=== PATIENT | female | born 1980 | race Caucasian/White ===

== ENCOUNTER 2021-02-16 13:22 | Emergency (ER) | payer OTHER, MEDICAID ==
[~2021-02-16] VITALS: Ht 167.6 cm; Wt 72.6 kg
--- NOTE | ~2021-02-16 | EMS ---
[facility] [address] [place] [address] EMS Patient Care Report Name: DON REICH Room: [facility]#: [id number] Admission: 02/16/21 Attend Phys: Discharge: Date of : 84 Report #: [id number] THIS REPORT FOR: //name// Report Transmitted: 02/16/2021 13:30 EMS Care Summary [facility] [employer] [facility] Incident [id number] @ 02/16/2021 12:07 Incident Location [address] [place] [address] Patient DON CUENCA Female, 40 Years 1980 Patient Address [address] [place] [address] Patient History Hypertension (HTN),Anxiety Disorder (Panic Attacks),Anxiety, Patient Allergies Diphenhydramine, Patient Medications Lisinopril, Chief Complaint Chest Pain Disposition Transported No Lights/[place] Dispatch Reason Chest Pain (Non-Traumatic) Transported To [facility] Narrative Med 1 was dispatched for [facility] for a [age] year-old female c/o Intermittent Chest Pain that radiates a dull pain down both her legs. When the pain begins she rates it at an 8. Upon arrival, the patient was sitting in the passenger side of a truck accompanied by her [place] [address] [place] [address] EMS Patient Care Report Name: DON REICH Room: [facility]#: [id number] Admission: 02/16/21 Attend Phys: Discharge: Date of : 84 Report #: [id number] boyfriend. She is AOx3, she has strong, regular, radial bilateral pulses. These symptoms have been going on for the last several weeks and she was seen by her PCP and he increased her Anxiety medication dose. She is unable to remember the name of the medication. Patient was assisted to the stretcher and secured via the seatbelts and moved to the ambulance without incident. In the ambulance, patient was placed on the EKG and a 12 lead was obtained it shown NSR. Patient's vitals were obtained. Patient was place don Oxygen via NC at 2 lpm. IV access was established in the patients left forearm with a 20 GA IV catheter and a saline lock. Med [address] [facility]. Patient was given 324 mg of ASA. Patient's pain decreased to a 0 throughout transport. Patient reports that she does not believe she has been under any new stress that could cause this chest pain. Patient was monitored though out transport. Hospital report was given via radio with no questions or orders requested or received. Med 1 arrived at the hospital. Patient was moved into the ER via stretcher to room 5 without incident. Patient care was transferred to ER staff and Med 1 returned back into service. [id number] KShook Initial Vitals @12:34P: 93,SpO2: 98, @12:47P: 92,SpO2: 95, @13:12P: 78,SpO2: 98, @12:57P: 84,SpO2: 98, @13:07P: 75,SpO2: 98, @12:37P: 94,SpO2: 98, @12:36 @13:02P: 81,SpO2: 98, @12:42P: 90, @12:52P: 85,SpO2: 99, @13:14P: 81,BP: 128/78,Pain: 0/10,GCS: 15,SpO2: 97, @12:48P: 94,BP: 133/76,Pain: 0/10,GCS: 15,SpO2: 95, @12:33R: 18,BP: 147/80,Pain: 8/10,GCS: 15,Glucose: 114,SpO2: 99,Revised Trauma: 12, Impression Chest Pain, Other (Non-Cardiac) Procedures @12:43Aspirin - 324 Milligrams (mg) - OralResponse: Unchanged@12:42Saline Lock 10cc (20 ga) Site: Forearm-LeftResponse: UnchangedSucceeded@12:40[place] [address] EMS Patient Care Report Name: DON REICH Room: [facility].#: [id number] Admission: 02/16/21 Attend Phys: Discharge: Date of : 84 Report #: [id number] FlowRate: 2 Device: Nasal Cannula (NC) Response: UnchangedSucceeded@12:3612-Lead ECGResponse: UnchangedSucceeded Timeline 12:06,Call Received 12:07,Dispatched 12:07,En Route 12:30,On Scene 12:31,At Patient 12:33,BP: 147/80 M,PULSE: ,RR: 18 R,SPO2: 99 Ox,ETCO2: ,B,PAIN: 8,GCS: 15, 12:34,BP: / M,PULSE: 93,RR: R,SPO2: 98 Ox,ETCO2: ,BG: ,PAIN: ,GCS: , 12:36,12-Lead ECG,Response: UnchangedSucceeded, 12:36,BP: / M,PULSE: ,RR: R,SPO2: Ox,ETCO2: ,BG: ,PAIN: ,GCS: , 12:37,BP: / M,PULSE: 94,RR: R,SPO2: 98 Ox,ETCO2: ,BG: ,PAIN: ,GCS: , 12:40,Oxygen FlowRate: 2 Device: Nasal Cannula (NC) Response: UnchangedSucceeded, 12:42,Saline Lock 10cc 20 ga Site: Forearm-Left,Response: UnchangedSucceeded, 12:42,BP: / M,PULSE: 90,RR: R,SPO2: Ox,ETCO2: ,BG: ,PAIN: ,GCS: , 12:43,Depart Scene 12:43,Aspirin - 324 Milligrams (mg) - Oral,Response: Unchanged 12:47,BP: / M,PULSE: 92,RR: R,SPO2: 95 Ox,ETCO2: ,BG: ,PAIN: ,GCS: , 12:48,BP: 133/76 M,PULSE: 94,RR: R,SPO2: 95 Ox,ETCO2: ,BG: ,PAIN: 0,GCS: 15, 12:52,BP: / M,PULSE: 85,RR: R,SPO2: 99 Ox,ETCO2: ,BG: ,PAIN: ,GCS: , 12:57,BP: / M,PULSE: 84,RR: R,SPO2: 98 Ox,ETCO2: ,BG: ,PAIN: ,GCS: , 13:02,BP: / M,PULSE: 81,RR: R,SPO2: 98 Ox,ETCO2: ,BG: ,PAIN: ,GCS: , 13:07,BP: / M,PULSE: 75,RR: R,SPO2: 98 Ox,ETCO2: ,BG: ,PAIN: ,GCS: , 13:12,BP: / M,PULSE: 78,RR: R,SPO2: 98 Ox,ETCO2: ,BG: ,PAIN: ,GCS: , 13:14,BP: 128/78 M,PULSE: 81,RR: R,SPO2: 97 Ox,ETCO2: ,BG: ,PAIN: 0,GCS: 15, 13:18,At Destination 13:52,Call Closed 13:52,In District Disclaimer v1.1 Copyright 2020 [employer] This EMS Care Summary contains data elements from the applicable legal record (which may be displayed differently). It is designed to provide pertinent information for the following purposes: continuity of care, clinical quality, and state data reporting. The complete legal record is available to ED staff and administrators of the receiving hospital in [facility]'s Patient Tracker. All data is provided "as is."
[2021-02-16 13:50] LABS: HEMATOCRIT 39.8 % (37.0-47.0); HEMOGLOBIN 13.3 gm/dL (12.0-15.0); MCHC 33.5 g/dL (28.0-37.0); MCV 92.7 fL (80.0-100.0); MPV 7.1 fl. (7.2-11.1); RBC 4.29 mil/uL (4.20-5.00); RDW-CV 12.9 % (10.5-14.5); WBC 10.7 thou/uL (4.0-11.0)
[2021-02-16 13:59] LABS: CALCIUM 8.9 mg/dL (8.5-10.1); CREATININE 0.8 mg/dL (0.6-1.3); POTASSIUM 3.8 mmol/L (3.5-5.1)
[2021-02-16 14:04] LABS: ALBUMIN 4.5 g/dL (3.4-5.0); TOTAL BILIRUBIN 0.8 mg/dL (<0.1-1.0)
[2021-02-16 15:01] VITALS: BP 96/51
--- NOTE | 2021-02-16 15:32 | EKG ---
[place] [address] ELECTROCARDIOGRAM REPORT Name: DON REICH Abdulkadir Room: [facility]#: [id number] Admission: 02/16/21 Attend Phys: Discharge: 02/16/21 Date of : 84 Date of Service: 02/16/21 1340 Report #: [id number] THIS REPORT FOR: //name// [facility] ED Test Date: 2021-02-16 Test Time: 13:40:45 Pat Name: DON REICH Department: Room: Gender: Cmo: GILL : 1980 Requested By: Kali De La Cruz Order Number: [id number] MD: Efra Tyson Measurements Intervals [place] Rate: 80 P: 29 AK: 179 QRS: 24 QRSD: 77 T: 53 QT: 374 QTc: 432 Interpretive Statements Sinus rhythm Anterior infarct, old No previous ECG available for comparison Electronically Signed On 02-16-2021 15:32:10 CDT by Efra Tyson [email or web address] <ELECTRONICALLY SIGNED> By: Efra Tyson MD, [facility] 02/16/21 1532 1340 1340 Efra Tyson MD, FAC /EPI
== END 2021-02-16 15:02 | disposition home or self-care (01) ==
LOC: M.ERS 13:22
PROVIDERS: Emergency Medicine
DX: R10.13 Epigastric pain (principal); R07.89 Other chest pain; K21.9 Gastro-esophageal reflux disease without esophagitis; Z88.6 Allergy status to analgesic agent